=== PATIENT | female | born 1945 | race Hispanic/Latino ===

== ENCOUNTER 2017-08-20 17:39 | Emergency (ER) | payer MEDICARE ==
--- OUTSIDE RECORDS SUMMARY | 2017-08-20 17:41 | XMS REPORT | Clinical Summary ---
Author Author ERNIE [facility] Address Unknown Phone Unavailable Care Team Providers Care Environmental Services Associate Name Role Phone PCP Unavailable Allergies No Known Allergies Current Medications Prescription Sig. Disp. Refills Start End Date Status Date simvastatin (ZOCOR) 10 MG Take 10 mg by mouth Active tablet nightly. fenofibrate micronized Take 134 mg by mouth Active (LOFIBRA) 134 MG capsule every morning before breakfast. busPIRone (BUSPAR) 15 MG Take 15 mg by mouth 3 Active tablet (three) times daily. Active Problems Not on file Social History Tobacco Use Types Packs/Day Years Used Date Current Every Day Smoker Cigarettes 0.5 10 Tobacco Cessation: Ready to Quit: No Alcohol Use Drinks/Week oz/Week Comments No Sex Assigned at Date Recorded Not on file Last Filed Vital Signs Not on file Plan of Treatment Not on file Results Not on fileafter 08/19/2016
[2017-08-20] MEDS ORDERED: GABAPENTIN300 MG PO (19:31)
[2017-08-20] MEDS ORDERED: SIMVASTATIN20 MG PO (19:32)
== END 2017-08-20 18:50 | disposition home or self-care (01) ==
LOC: FSED 17:39
DX: L50.0 Allergic urticaria (principal); T37.0X5A Adverse effect of sulfonamides, initial encounter; N39.0 Urinary tract infection, site not specified
CPT/HCPCS: 99282